=== PATIENT | female | born 1990 | race African-American/Black ===

== ENCOUNTER → 2023-10-27 | Outpatient (REF) | LOC: M LAB 12:28 | PROVIDERS: ATTEND Nurse Practitioner Adult Health | DX: Z02.1 Encounter for pre-employment examination (principal) ==

== ENCOUNTER 2023-11-24 18:03 | Emergency (ER) | payer BC ==
[~2023-11-24] VITALS: Ht 167.6 cm; Wt 66.1 kg
[2023-11-24 18:40] LABS: BASO % 0.3 % (0.0-1.0); EOS % 0.6 % (0.0-3.0); HEMATOCRIT 40.9 % (36.0-47.0); HEMOGLOBIN 14.1 g/dl (12.0-15.5); LYMPH # 2.1 10^3/uL (1.5-5.0); LYMPH % 30.2 % (24.0-44.0); MEAN CORPUSCULAR HEMOGLOBIN 27.6 pg (27.0-33.0); MEAN CORPUSCULAR HGB CONC 34.5 g/dl (32.0-36.5); MONO # 0.8 10^3/uL (0.0-0.8); MONO % 11.4 % (2.0-8.0); NEUTROPHILS # 3.9 10^3/uL (1.5-8.5); NEUTROPHILS % 57.2 % (36.0-66.0); PLATELET COUNT, AUTOMATED 206 10^3/uL (150-450); RED BLOOD COUNT 5.11 10^6/uL (4.00-5.40); WHITE BLOOD COUNT 6.8 10^3/uL (4.0-10.0)
[2023-11-24 19:07] LABS: BLOOD UREA NITROGEN 11 MG/DL (9-23); CALCIUM LEVEL 9.5 MG/DL (8.5-10.1); CARBON DIOXIDE LEVEL 26 MMOL/L (20-31); CHLORIDE LEVEL 103 MMOL/L (98-107); CREATININE FOR GFR 0.69 MG/DL (0.55-1.30); GLOMERULAR FILTRATION RATE > 60.0 (>60); GLUCOSE, FASTING 87 MG/DL (60-100); POTASSIUM SERUM 3.9 MMOL/L (3.5-5.1); SODIUM LEVEL 136 MMOL/L (136-145)
[2023-11-24 19:34] LABS: HCG, SERUM QUANTITATIVE 96652.1 MIU/ML (<4.2)
[2023-11-24] MEDS ORDERED: NS 1,000 ML IV ONE (19:40)
[2023-11-24] MEDS ORDERED: PYRI25TA2 PO (20:08)
[2023-11-24] MEDS ORDERED: UNIS25TA3 PO (20:08)
[2023-11-24 21:44] VITALS: BP 133/82; TEMP 96.6; O2SAT 100
== END 2023-11-24 21:48 | disposition home or self-care (01) ==
LOC: M ED 18:03
DX: O21.9 Vomiting of pregnancy, unspecified (principal); Z3A.08 8 weeks gestation of pregnancy; Z79.899 Other long term (current) drug therapy

== ENCOUNTER → 2023-12-15 | Outpatient (CLI) | payer BC ==
[~2023-12-15] MED LIST: PYRI25TA2 PO; UNIS25TA3 PO
[2023-12-15 16:03] LABS: HEMATOCRIT 40.4 % (36.0-47.0); HEMOGLOBIN 13.9 g/dl (12.0-15.5); MEAN CORPUSCULAR HGB CONC 34.4 g/dl (32.0-36.5); MEAN CORPUSCULAR VOLUME 81.3 fl (80.0-96.0); PLATELET COUNT, AUTOMATED 200 10^3/uL (150-450); RED BLOOD COUNT 4.97 10^6/uL (4.00-5.40); WHITE BLOOD COUNT 6.9 10^3/uL (4.0-10.0)
[2023-12-15 17:01] LABS: HIV 1&2 SCREEN NEGATIVE (NEGATIVE)
[2023-12-15 17:09] LABS: HEPATITIS C VIRUS ABY INDEX 0.04 INDEX (<0.8)
[2023-12-15 17:42] LABS: GC DNA AMPLIFICATION NEGATIVE (NEGATIVE)
[2023-12-20 13:19] LABS: HEMOGLOBINOPATHY EVAL HCT 45.1 % (35.0-45.0); HEMOGLOBINOPATHY EVAL HGB 14.3 g/dL (11.7-15.5); HEMOGLOBINOPATHY EVAL HGB A 62.3 % (>96.0); HEMOGLOBINOPATHY EVAL HGB A2 3.6 % (2.0-3.2); HEMOGLOBINOPATHY EVAL HGB S 34.1 % (0.0); HEMOGLOBINOPATHY EVAL MCH 27.7 pg (27.0-33.0); HEMOGLOBINOPATHY EVAL MCV 87.2 fL (80.0-100.0); HEMOGLOBINOPATHY EVAL RBC 5.17 Mill/uL (3.80-5.10); HEMOGLOBINOPATHY EVAL RDW 13.9 % (11.0-15.0)
== END ==
LOC: M PLALAB 12:21
PROVIDERS: ATTEND Obstetrics & Gynecology
DX: Z34.91 Encounter for supervision of normal pregnancy, unspecified, first trimester (principal)

== ENCOUNTER → 2024-01-25 | Outpatient (CLI) | payer BC | LOC: M PLALAB 11:06 | PROVIDERS: ATTEND Advanced Practice Midwife | DX: Z34.80 Encounter for supervision of other normal pregnancy, unspecified trimester (principal) ==

== ENCOUNTER → 2024-02-17 | Outpatient (CLI) | payer BC | LOC: M WHC 10:15 | PROVIDERS: ATTEND Obstetrics & Gynecology | DX: Z34.92 Encounter for supervision of normal pregnancy, unspecified, second trimester (principal); Z3A.18 18 weeks gestation of pregnancy ==

== ENCOUNTER → 2024-03-20 | Outpatient (CLI) | payer BC | LOC: M WHC 08:29 | PROVIDERS: ATTEND Advanced Practice Midwife | DX: Z34.80 Encounter for supervision of other normal pregnancy, unspecified trimester (principal) ==

== ENCOUNTER → 2024-04-19 | Outpatient (CLI) | payer BC ==
[2024-04-19 15:55] LABS: HEMATOCRIT 39.9 % (36.0-47.0); HEMOGLOBIN 13.6 g/dl (12.0-15.5); MEAN CORPUSCULAR HEMOGLOBIN 28.3 pg (27.0-33.0); MEAN CORPUSCULAR HGB CONC 34.1 g/dl (32.0-36.5); MEAN CORPUSCULAR VOLUME 83.1 fl (80.0-96.0); PLATELET COUNT, AUTOMATED 148 10^3/uL (150-450); WHITE BLOOD COUNT 5.5 10^3/uL (4.0-10.0)
[2024-04-19 17:15] LABS: GC DNA AMPLIFICATION NEGATIVE (NEGATIVE)
== END ==
LOC: M PLALAB 11:38
PROVIDERS: ATTEND Obstetrics & Gynecology
DX: Z34.80 Encounter for supervision of other normal pregnancy, unspecified trimester (principal)

== ENCOUNTER → 2024-05-17 | Outpatient (CLI) | payer BC | LOC: M RAD 07:41 | PROVIDERS: ATTEND Obstetrics & Gynecology | DX: O26.843 Uterine size-date discrepancy, third trimester (principal); Z3A.31 31 weeks gestation of pregnancy ==

== ENCOUNTER → 2024-06-15 | Outpatient (REF) | payer BC | LOC: M PLALAB 09:44 | PROVIDERS: ATTEND Nurse Practitioner Family | DX: Z34.03 Encounter for supervision of normal first pregnancy, third trimester (principal); Z14.8 Genetic carrier of other disease; Z3A.35 35 weeks gestation of pregnancy ==

== ENCOUNTER → 2024-06-29 | Outpatient (CLI) | payer BC, OTHER | LOC: M WHC 11:39 | PROVIDERS: ATTEND Nurse Practitioner Family | DX: Z34.03 Encounter for supervision of normal first pregnancy, third trimester (principal); Z3A.37 37 weeks gestation of pregnancy ==

== ENCOUNTER 2024-07-08 01:49 | Inpatient (IN) | payer BC, OTHER ==
[~2024-07-08] VITALS: Ht 167.6 cm; Wt 70.6 kg
[2024-07-08] VITALS (33 sets, daily range): BP systolic 110–154; BP diastolic 57–96; O2SAT 100
[2024-07-08] MEDS ORDERED: TRANEXAMIC ACID INJection 1,000 MG in NS 100 ML IV PRN (02:30)
[2024-07-08] MEDS ORDERED: METHYLERGONOVINE MALEATE 0.2MG/ML 1ML VIAL IM PRN (02:30)
[2024-07-08] MEDS ORDERED: OXYTOCIN DRIP 30 UNITS in IV 1 EA IV PRN (02:30)
[2024-07-08] MEDS ORDERED: LIDOCAINE 1% MDV 20ML VIAL INFIL PRN (02:30)
[2024-07-08] MEDS ORDERED: CARBOPROST TROMETHAMINE 250 MCG/ML AMP IM PRN (02:30)
[2024-07-08 03:29] LABS: HEMATOCRIT 43.2 % (36.0-47.0); HEMOGLOBIN 14.9 g/dl (12.0-15.5); MEAN CORPUSCULAR HEMOGLOBIN 28.5 pg (27.0-33.0); MEAN CORPUSCULAR HGB CONC 34.5 g/dl (32.0-36.5); MEAN CORPUSCULAR VOLUME 82.6 fl (80.0-96.0); PLATELET COUNT, AUTOMATED 130 10^3/uL (150-450); RED BLOOD COUNT 5.23 10^6/uL (4.00-5.40); WHITE BLOOD COUNT 6.7 10^3/uL (4.0-10.0)
[2024-07-08 04:45] LABS: HEPATITIS C VIRUS ABY INDEX < 0.02 INDEX (<0.8)
[2024-07-08] MEDS ORDERED: OXYTOCIN DRIP 30 UNITS in IV 1 EA IV SCH (06:10)
[2024-07-08] MEDS: LACTATED RINGER'S 1000 ML IV STA (09:19)
[2024-07-08] MEDS ORDERED: ePHEDrine SULFATE 25 MG/5 ML(5MG/ML) SYRINGE IVP PRN (09:45)
[2024-07-08] MEDS ORDERED: diphenhydrAMINE 50MG/ML VIAL IV PRN (09:45)
[2024-07-08] MEDS ORDERED: LR 500 ML IV PRN (09:45)
[2024-07-08] MEDS ORDERED: ONDANSETRON 4MG 2ML VIAL IV PRN ×2 (09:45→13:15)
[2024-07-08] MEDS ORDERED: NALOXONE INJ 0.4MG/1ML VIAL IV PRN (09:45)
[2024-07-08] MEDS ORDERED: EPIDURAL/PCA KEYS XX PRN (09:45)
[2024-07-08] MEDS: LR 1,000 ML IV SCH ×2 (10:16→15:27)
[2024-07-08] MEDS: FENTANYL/ROPIVACAINE/NACL BAG 100 ML EPIDURAL SCH (10:16)
[2024-07-08] MEDS ORDERED: CALCIUM CARBONATE 500 MG CHEW U/D PO PRN (13:15)
[2024-07-08] MEDS ORDERED: DOCUSATE SODIUM 100MG CAPSULE PO PRN (13:15)
[2024-07-08] MEDS ORDERED: IBUPROFEN 600MG TAB PO PRN (13:15)
[2024-07-08] MEDS ORDERED: ANUSOL HC CREAM 30GM TOP PRN (13:15)
[2024-07-08] MEDS ORDERED: METHYLERGONOVINE MALEATE 0.2 MG TAB PO PRN (13:15)
[2024-07-08] MEDS ORDERED: IBUPROFEN 800 MG TAB PO PRN (13:15)
[2024-07-08] MEDS ORDERED: RHOGAM 300MCG (1500IU) INJ IM SCH (13:15)
[2024-07-08] MEDS ORDERED: ACETAMINOPHEN 500 MG TAB PO PRN (13:15)
[2024-07-08] MEDS ORDERED: DIBUCAINE 1% OINTMENT 30GM TOP PRN (13:15)
[2024-07-08] MEDS: OXYTOCIN DRIP 30 UNITS in IV 1 EA IV SCH (15:28)
[2024-07-09 06:00] VITALS: BP 110/62; O2SAT 100
[2024-07-09] MEDS: PRENATAL VITAMINS CHEWABLE TABLET PO SCH (08:33)
[2024-07-09] MEDS: FERROUS SULFATE 325MG TAB PO SCH (08:33)
[2024-07-09 17:46] VITALS: BP 111/70; O2SAT 100
[2024-07-09] MEDS: ACETAMINOPHEN 325 MG TAB PO PRN (20:42)
[2024-07-10 06:00] VITALS: BP 112/70; O2SAT 100
[2024-07-10] MEDS ORDERED: MEASLES,MUMPS,RUBELLA VACCINE INJ (MMR-II) SC.IMMUN ONE (09:00)
[2024-07-10] MEDS ORDERED: ACET-683 PO (13:26)
[2024-07-10] MEDS ORDERED: IBUP80TA PO (13:26)
== END 2024-07-10 15:45 | disposition home or self-care (01) | DRG 560 ==
LOC: M LDO 01:49 → M LDI 02:22 → M OBS 15:21
PROVIDERS: ADMIT Obstetrics & Gynecology; ATTEND Obstetrics & Gynecology
PROC: 10E0XZZ Delivery of Products of Conception, External Approach (ICD-10-PCS; principal; 2024-07-08)
DX: O80 Encounter for full-term uncomplicated delivery (principal); Z37.0 Single live birth; Z3A.39 39 weeks gestation of pregnancy